=== PATIENT | female | born 1965 ===

== ENCOUNTER 2020-09-01 13:59 | Emergency (ER) | payer MEDICARE, MEDICAID ==
[~2020-09-01] VITALS: Ht 157.5 cm; Wt 101.2 kg
[2020-09-01 14:05] VITALS: BP 97/58
--- NOTE | 2020-09-01 14:30 | NUR ---
Pt here for chest Xray. Pt travelling to [place] for , states that dialysis center in [place] is requesting chest xray. Pt has no complaints.
== END 2020-09-01 15:25 | disposition home or self-care (01) ==
LOC: ED 15:12
DX: R10.9 Unspecified abdominal pain (principal); Z13.89 Encounter for screening for other disorder
CPT/HCPCS: 71045; 99283